=== PATIENT | male | born 1980 | race Caucasian/White ===

== ENCOUNTER 2019-11-18 11:21 | Inpatient (IN) ==
[2019-11-18] MEDS ORDERED: *HR* LORazepam 2 MG/ML VIAL IM ONE (12:09)
[2019-11-18 14:55] LABS: Bilirubin,Urine Negative (Negative); Blood,Urine Large (Negative); Clarity,Urine Cloudy (Clear); Color,Urine Yellow (Yellow); Glucose,Urine (UA) Normal (Normal); Ketones,Urine Negative (Negative); Leukocyte Esterase,Urine Negative (Negative); Nitrite,Urine Negative (Negative); Protein,Urine 30 mg/dL (Neg-Trace); Specific Gravity,Urine 1.022 (1.010-1.025); Urobilinogen,Urine Normal (Normal)
[2019-11-18 14:57] LABS: Bacteria,Urine None Seen per hpf (None-Few); Hyaline Casts,Urine None Seen per lpf (None-Few); RBC,Urine 15-30 per hpf (0-3); Squamous Epithelial Cell,Urine Moderate per lpf (None-Few)
[2019-11-18 15:13] LABS: Amphetamine Screen,Urine Positive ng/mL (Cutoff=1000); Barbiturate Screen,Urine Negative ng/mL (Cutoff=200); Benzodiazepines Screen,Urine Negative ng/mL (Cutoff=200); Cannabinoid Screen,Urine Negative ng/mL (Cutoff = 50); Cocaine Screen,Urine Negative ng/mL (Cutoff= 300); Opiate Screen,Urine Negative ng/mL (Cutoff=300); Phencyclidine Screen,Urine Negative ng/mL (Cutoff=25)
[2019-11-18 15:16] LABS: Acetaminophen < 10 mcg/mL (10-20); BUN/Creatinine Ratio 17 (6-26); Blood Urea Nitrogen 41 mg/dL (6-20); Calcium 9.3 mg/dL (8.6-10.3); Carbon Dioxide 21 mEq/L (23-29); Chloride 95 mEq/L (98-107); Ethanol < 10 mg/dL (Less than 10); Glucose 72 mg/dL (70-105); Osmolality,Calculated 279 (280-300); Potassium 3.2 mEq/L (3.5-5.1); Salicylate < 2.5 mg/dL (15.0-30.0); Sodium 130 mEq/L (136-145); eGFR For African Americans 37 (> 60); eGFR For Non-African Americans 31 (> 60)
[2019-11-18 15:37] LABS: Basophils % 0.3 %; Eosinophils # 0.1 K/mcL (0.0-0.6); Eosinophils % 0.6 %; Hematocrit 39.6 % (37.5-50.1); Hemoglobin 14.4 g/dL (12.9-16.9); Immature Granulocytes % 0.3 % (0-4); Lymphocytes # 3.1 K/mcL (0.6-4.6); Lymphocytes % 24.3 %; Mean Corpuscular HGB Conc 36.4 g/dL (31.6-35.5); Mean Corpuscular Hemoglobin 30.7 pg (28.0-33.3); Mean Platelet Volume 9.3 fL (9.4-12.4); Monocytes # 1.9 K/mcL (0.0-1.3); Monocytes % 15.3 %; Neutrophils # 7.5 K/mcL (1.6-8.9); Platelet Count 205 K/mcL (140-400); Red Blood Count 4.69 M/mcL (4.19-5.50); Red Cell Distribution Width 13.6 % (11.5-14.5); Segmented Neutrophils % 59.2 %; White Blood Count 12.7 K/mcL (4.3-11.1)
[2019-11-18] MEDS ORDERED: 0.9 % Sodium Chloride 1,000 ML IV ONE ×2 (15:46→16:57)
[2019-11-18] MEDS ORDERED: *HR* LORazepam 2 MG/ML VIAL IVP ONE (15:53)
[2019-11-18 16:05] LABS: Mean Corpuscular Volume 84.4 fL (83.0-100.0)
[2019-11-18] MEDS ORDERED: Potassium Chloride Elixir 20 MEQ/15 ML UDC PO ONE (16:58)
[2019-11-18] MEDS ORDERED: Naloxone 0.4 MG/ML INJ IVP PRN (17:05)
[2019-11-18] MEDS ORDERED: Ondansetron ODT 4 MG TAB.RAPDIS SL PRN (17:10)
[2019-11-18] MEDS ORDERED: *HR* LORazepam 2 MG/ML VIAL IVP PRN (17:11)
[2019-11-18] MEDS: Acetaminophen 325 MG TABLET PO PRN (20:38)
[2019-11-18] MEDS: 0.9 % Sodium Chloride 1,000 ML IVC SCH (20:38)
[2019-11-19] MEDS: *HR* Heparin 5,000 UNIT/ML VIAL SQ SCH ×4 (00:05→23:14)
[2019-11-19] MEDS: 0.9 % Sodium Chloride 1,000 ML IVC SCH ×3 (00:06→20:54)
[2019-11-19 02:05] LABS: Hematocrit 38.2 % (37.5-50.1); Mean Corpuscular Hemoglobin 29.5 pg (28.0-33.3); Mean Corpuscular Volume 86.8 fL (83.0-100.0); Mean Platelet Volume 9.5 fL (9.4-12.4); Platelet Count 201 K/mcL (140-400); Red Cell Distribution Width 13.7 % (11.5-14.5); White Blood Count 7.7 K/mcL (4.3-11.1)
[2019-11-19 02:25] LABS: BUN/Creatinine Ratio 23 (6-26); Blood Urea Nitrogen 23 mg/dL (6-20); Carbon Dioxide 19 mEq/L (23-29); Chloride 108 mEq/L (98-107); Glucose 78 mg/dL (70-105); Osmolality,Calculated 279 (280-300); Potassium 3.9 mEq/L (3.5-5.1); Sodium 133 mEq/L (136-145); eGFR For African Americans > 60 (> 60); eGFR For Non-African Americans > 60 (> 60)
[2019-11-19] MEDS: Acetaminophen 325 MG TABLET PO PRN (22:00)
[2019-11-20 00:55] LABS: Basophils % 0.6 %; Eosinophils # 0.1 K/mcL (0.0-0.6); Eosinophils % 2.6 %; Hemoglobin 11.9 g/dL (12.9-16.9); Immature Granulocytes % 0.2 % (0-4); Mean Corpuscular Hemoglobin 30.5 pg (28.0-33.3); Mean Corpuscular Volume 87.2 fL (83.0-100.0); Mean Platelet Volume 9.5 fL (9.4-12.4); Monocytes # 0.7 K/mcL (0.0-1.3); Monocytes % 12.8 %; Neutrophils # 2.4 K/mcL (1.6-8.9); Platelet Count 160 K/mcL (140-400); Segmented Neutrophils % 45.8 %; White Blood Count 5.3 K/mcL (4.3-11.1)
[2019-11-20 01:18] LABS: BUN/Creatinine Ratio 20 (6-26); Blood Urea Nitrogen 14 mg/dL (6-20); Calcium 7.9 mg/dL (8.6-10.3); Carbon Dioxide 23 mEq/L (23-29); Chloride 112 mEq/L (98-107); Glucose 93 mg/dL (70-105); Magnesium 1.7 mg/dL (1.6-2.6); Osmolality,Calculated 288 (280-300); Potassium 3.8 mEq/L (3.5-5.1); Sodium 139 mEq/L (136-145); eGFR For African Americans > 60 (> 60); eGFR For Non-African Americans > 60 (> 60)
[2019-11-20 01:29] LABS: Creatine Kinase 2568 Units/L (30-223)
[2019-11-20] MEDS: 0.9 % Sodium Chloride 1,000 ML IVC SCH (04:14)
[2019-11-20] MEDS: *HR* Heparin 5,000 UNIT/ML VIAL SQ SCH (07:37)
[2019-11-20] MEDS ORDERED: Ringers Solution, Lactated 1,000 ML IVC SCH (08:15)
[2019-11-20] MEDS ORDERED: hydrOXYzine pamoate 25 MG CAPSULE PO PRN (08:31)
[2019-11-20] MEDS ORDERED: Acetaminophen 325 MG TABLET PO PRN (08:32)
[2019-11-20 16:35] VITALS: BP 104/69
== END 2019-11-20 10:00 | disposition left against medical advice (07) | DRG 351 ==
LOC: EMEROOARM 11:21 → 3ANU 11:21 → SUATTDRO 17:46 → 2NNU 18:24 → 2ANU 11-20 08:41
PROVIDERS: ADMIT Internal Medicine; ATTEND Internal Medicine